=== PATIENT | male | born 1995 | race Caucasian/White ===

== ENCOUNTER 2024-10-27 14:53 | Emergency (ER) | payer MEDICARE, MEDICAID, SELFPAY ==
[2024-10-27 14:55] VITALS: BP 121/71; PULSE 102; RESP 16; TEMP 36.7; O2SAT 98; BMI 26.5
--- NOTE | 2024-10-27 15:13 | EKG12_ITS ---
Test Reason : SEIZURE Blood Pressure : */* mmHG Vent. Rate : 98 BPM Atrial Rate : 98 BPM P-R Int : 148 ms QRS Dur : 98 ms QT Int : 350 ms P-R-T Axes : 63 84 56 degrees QTcB Int : 446 ms Normal sinus rhythm Normal ECG Confirmed by BEBE CARVALHO, QUINCY ([id number]), news copy editor ROSY QUINTANILLA ([id number]) on 10/30/2024 1:06:01 PM Referred By: Confirmed By: QUINCY SPENCE MD
--- NOTE | 2024-10-27 15:19 | EX.ED.DYSGE1 ---
HPI History of Present Illness Chief Complaint: Seizure Narrative Narrative: Chief complaint and HPI: Breakthrough seizures. 29-year-old male with past medical history of autism and seizures presents for evaluation of breakthrough seizure. History taken by mother as well as patient. 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 He did fall to the ground. The first 1 was approximately 2 minutes long followed by a second 1 which was approximately 30 seconds. Patient reported some nausea and lightheadedness after the seizure but now only endorses fatigue. He did bite his tongue. Did not lose bowel or bladder incontinence. They called their neurologist Dr. Gregory at [facility] and recommended that the patient go to the emergency department to check lamotrigine levels. Mother states that the patient takes 300 mg of lamotrigine in the morning with 50 mg of Vimpat. He then takes another 400 mg of lamotrigine in the evening with 50 mg of Vimpat. Patient denies any fever, chills, shortness of breath, chest pain abdominal pain, nausea, vomiting, dysuria. Review of systems: See HPI Medications: As listed on the chart Allergies: As listed on the chart PFSH: Per chart Vital signs: As listed on the chart. Reviewed. Physical exam: Gen: A&O x3, NAD Head: Normocephalic, atraumatic Eyes: No sclera icterus, conjunctiva clear, PERRL, EOMI ENT: TMs clear BL, moist mucous membranes, small bite ashlie to the right side of the tongue, no swelling/lacerations/blood in the mouth or the nares, No nasal septal hematoma, no facial tenderness Neck: Trachea midline, No JVD, Nontender CV: RRR, no murmurs, no chest wall TTP Resp: Lungs CTA BL, no w/r/c GI: Abd soft, non-distended, non-tender, no r/r/g Musc: Full ROM, no deformity, no spinal TTP, no gilda step-offs, strength +5/5 Skin: Warm, dry, intact Neuro: Alert, oriented, grossly intact, sensation intact, GCS 15 Psych: Cooperative, appropriate mood and affect [facility] Medical History (Updated 10/27/24 @ 15:05 by Jo Pringle) History of right shoulder fracture Autism Seizures Home Medications ?Medication ?Instructions ?Recorded ?Last Taken ?Type lacosamide 50 mg tablet 50 mg PO Q12.TCU 10/27/24 Unknown History lamotrigine 100 mg tablet 100 mg PO DAILY 10/27/24 Unknown History lamotrigine 200 mg tablet 600 mg PO DAILY 10/27/24 Unknown History Allergy/AdvReac Type Severity Reaction Status Date / Time grapefruit Allergy Other Verified 10/27/24 15:09 peanut (peanuts) AdvReac Intermediate Rash Verified 10/27/24 15:09 red dye AdvReac Intermediate Rash Verified 10/27/24 15:09 Surgical History (Updated 10/27/24 @ 15:05 by Jo Pringle) Hx of eye surgery Social History Smoking Status: Never smoker EXAM Physical Exam Const Vital Signs: 10/27/24 14:55 10/27/24 15:54 10/27/24 16:00 Temperature 98.0 F Temperature Source Oral Pulse Rate 102 H 87 84 Respiratory Rate 16 18 17 Blood Pressure 121/71 H 114/65 120/78 Blood Pressure Mean 87 81 92 Pulse Ox 98 96 99 Oxygen Delivery Method Room Air Room Air Room Air 10/27/24 17:00 10/27/24 17:58 10/27/24 18:14 Temperature 98.0 F Temperature Source Pulse Rate 89 81 81 Respiratory Rate 21 H 20 H 20 H Blood Pressure 128/74 H 130/72 H 130/72 H Blood Pressure Mean 92 91 91 Pulse Ox 99 98 98 Oxygen Delivery Method Room Air Room Air MDM MDM MDM Narrative Medical decision making narrative: 29-year-old male with past medical history of autism and seizures presents for evaluation of breakthrough seizure. History taken by mother as well as patient. 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 He did fall to the ground. The first 1 was approximately 2 minutes long followed by a second 1 which was approximately 30 seconds. They called their neurologist Dr. Gregory at [facility] and recommended that the patient go to the emergency department to check lamotrigine levels. Patient does state that he accidentally missed his morning medication on Wednesday however took his evening. Differential diagnosis includes but is not limited to breakthrough seizure, subtherapeutic medication levels, electrolyte abnormality, UTI, dehydration, intoxication, substance abuse, traumatic injury. Given patient fell from a standing position we will obtain CT head and neck. Mother states that patient has a history of fractures from falls due to his seizures. NS bolus ordered. Seizure precautions placed. Did obtain a Lamictal level however will be multiple days before this results. Seizure workup ordered. CT head and neck without any acute traumatic injury. CBC without leukocytosis or anemia. CMP relatively unremarkable. No significant electrolyte abnormality, AYDEE, transaminitis magnesium mildly elevated at 2.3. Alcohol level unremarkable. Lactic acid is 5. This coincides with patient having a seizure. Low suspicion for any infectious etiology. UA negative for UTI. Urine drug screen negative. At this point in time, no clear etiology for patient's breakthrough seizure. Will contact his neurologist to make sure he does not need any changes in his medication. I spoke with the [facility] neurology resident and he spoke with their attending. Plan is to increase the Vimpat to 100 mg twice daily. Klonopin 1 mg twice daily x 2 days. Patient and his mother were updated of the medical changes. Prescription sent. No driving or operate heavy machinery until cleared by neurologist. They confirmed understand the plan. Patient stable for discharge home. EKG: Interpreted by me/EM physician: EKG shows normal sinus rhythm without any acute ischemic changes. Heart rate 98 Diagnostic: Interpreted by me/EM physician: Chest x-ray without pneumonia, effusion, cardiomegaly, pneumothorax. Radiology in agreement. Per the report there are biapical patchy ground glass opacity seen on the cervical spine CT but not appreciated on plain radiographs. Patient not endorsing any URI symptoms or cough. Low suspicion for infection. Impression: 1. Breakthrough seizure 2. History of seizures Lab Data Labs: Laboratory Results - last 24 hr 10/27/24 10/27/24 10/27/24 15:02 15:25 16:40 WBC 10.8 RBC 4.42 L Hgb 13.8 Hct 41.3 MCV 93.4 MCH 31.2 MCHC 33.4 RDW Std Deviation 45.0 H RDW Coeff of Christin 13.6 Plt Count 279 MPV 9.2 Immature Gran % (Auto) 0.800 Neut % (Auto) 67.2 Lymph % (Auto) 21.7 Harlan % (Auto) 7.5 Eos % (Auto) 2.5 Baso % (Auto) 0.3 Absolute Neuts (auto) 7.3 Absolute Lymphs (auto) 2.35 Nucleated RBC % 0 Sodium 136 Potassium 4.5 Chloride 99 Carbon Dioxide 17.9 L Anion Gap 18 H BUN 9 Creatinine 1.18 Estim Creat Clear Calc 114.43 Est GFR (MDRD) Non-Af 86 BUN/Creatinine Ratio 7.9 L Glucose 98 Lactic Acid 5.0 H* Calcium 9.2 Magnesium 2.3 H Total Bilirubin 0.39 AST 36 ALT 23 Alkaline Phosphatase 70 Total Protein 7.0 Albumin 4.3 Globulin 2.6 Albumin/Globulin Ratio 1.7 Urine Color Straw Urine Clarity Sl. Cloudy Urine pH 5.0 Ur Specific [place] 1.025 Urine Protein 30 H Urine Glucose (UA) Normal Urine Ketones Negative Urine Occult Blood 25 H Urine Nitrite Negative Urine Bilirubin Negative Urine Urobilinogen Normal Ur Leukocyte Esterase Negative Urine RBC 5-10 SEEN Urine WBC 0-5 SEEN Ur Squamous Epith Cells 0-5 SEEN Urine Bacteria 0 SEEN Urine Mucus 0 SEEN Urine Opiates Screen NEGATIVE U Buprenorphine Qual NEGATIVE Ur Oxycodone Screen NEGATIVE Urine Methadone Screen NEGATIVE Urine Fentanyl Screen NEGATIVE Ur Barbiturates Screen NEGATIVE Ur Phencyclidine Scrn NEGATIVE Ur Amphetamines Screen NEGATIVE U Benzodiazepines Scrn NEGATIVE Urine Cocaine Screen NEGATIVE U Cannabinoids Screen NEGATIVE Ethyl Alcohol < 10.1 Radiography Diagnostic Testing: Clinical Impression(s) from Imaging Studies Brain CT 10/27/24 15:40 IMPRESSION: 1. No acute intracranial abnormality. 2. No acute cervical spine fracture or malalignment. 3. Patchy ground-glass opacities in the imaged lung apices, may be infectious/inflammatory or related to pulmonary edema in the appropriate clinical setting. Reading Location: [facility] Cervical Spine CT 10/27/24 15:40 IMPRESSION: 1. No acute intracranial abnormality. 2. No acute cervical spine fracture or malalignment. 3. Patchy ground-glass opacities in the imaged lung apices, may be infectious/inflammatory or related to pulmonary edema in the appropriate clinical setting. Reading Location: [facility] Chest X-Ray 10/27/24 15:45 IMPRESSION: No definite acute cardiopulmonary disease. There are biapical patchy ground-glass opacities seen on the concomitant cervical spine CT, not appreciated on these plain radiographs. Reading Location: [facility] Discharge Plan Triage Chief Complaint: Seizure ED Provider: Cristian Landin Dx/Rx/DC Orders Prescriptions: No Action lacosamide 50 mg tablet 50 mg PO Q12.TCU lamotrigine 200 mg tablet 600 mg PO DAILY lamotrigine 100 mg tablet 100 mg PO DAILY Primary Care Provider: Care Physician,No Primary Referrals: Town Doctor,Out of [Non-Staff] - Print Language: Slovenian
--- NOTE | 2024-10-27 15:40 | CT_ITS ---
EXAM: CT BRAIN/HEAD WITHOUT CONTRAST; CT SPINE CERVICAL WITHOUT CONTRAST CLINICAL HISTORY: FALL COMPARISON: None. TECHNIQUE: Noncontrast CT images of the head and cervical spine with multiplanar reconstructions. Dose reduction techniques were used including intermediate exposure control (AEC),iterative reconstruction technique, and/or mA and/or KV dose adjustments based on patient's size. FINDINGS: HEAD: No acute intracranial hemorrhage, extra-axial collection, mass effect or evidence of acute infarct. Ventricles and subarachnoid spaces are normal in size. Orbital contents are unremarkable. Intact skull base and calvarium. Well-aerated paranasal sinuses and bilateral mastoid air cells. Left-sided cecilia bullosa with associated rightward nasal septal deviation and spurring. CERVICAL SPINE: No acute fracture or subluxation. Alignment is anatomic. No significant degenerative changes are present. No prevertebral soft tissue swelling. Patchy ground-glass opacities in the imaged bilateral lung apices may be infectious/inflammatory, or possibly related to pulmonary edema. CT/Brain/Head without Contrast IMPRESSION: 1. No acute intracranial abnormality. 2. No acute cervical spine fracture or malalignment. 3. Patchy ground-glass opacities in the imaged lung apices, may be infectious/i nflammatory or related to pulmonary edema in the appropriate clinical setting. Reading Location: [id number]
--- NOTE | 2024-10-27 15:40 | CT_ITS ---
EXAM: CT BRAIN/HEAD WITHOUT CONTRAST; CT SPINE CERVICAL WITHOUT CONTRAST CLINICAL HISTORY: FALL COMPARISON: None. TECHNIQUE: Noncontrast CT images of the head and cervical spine with multiplanar reconstructions. Dose reduction techniques were used including intermediate exposure control (AEC),iterative reconstruction technique, and/or mA and/or KV dose adjustments based on patient's size. FINDINGS: HEAD: No acute intracranial hemorrhage, extra-axial collection, mass effect or evidence of acute infarct. Ventricles and subarachnoid spaces are normal in size. Orbital contents are unremarkable. Intact skull base and calvarium. Well-aerated paranasal sinuses and bilateral mastoid air cells. Left-sided cecilia bullosa with associated rightward nasal septal deviation and spurring. CERVICAL SPINE: No acute fracture or subluxation. Alignment is anatomic. No significant degenerative changes are present. No prevertebral soft tissue swelling. Patchy ground-glass opacities in the imaged bilateral lung apices may be infectious/inflammatory, or possibly related to pulmonary edema. CT/Spine Cervical without Contras IMPRESSION: 1. No acute intracranial abnormality. 2. No acute cervical spine fracture or malalignment. 3. Patchy ground-glass opacities in the imaged lung apices, may be infectious/i nflammatory or related to pulmonary edema in the appropriate clinical setting. Reading Location: [id number]
[2024-10-27 15:44] LABS: Hematocrit 41.3 % (40-54); Hemoglobin 13.8 g/dL (13.0-16.5); Immature Granulocytes Count 0.090 X10^3/uL (0.0-0.0); Mean Corp Hgb Conc 33.4 g/dL (32-36); Mean Corpuscular Volume 93.4 fL (80-94); Mean Platelet Vol. 9.2 fl (6.2-12.0); NRBC Flagged by Analyzer 0 % (0-5); Platelet Count 279 K/mm3 (150-450); RBC Distribution Width CV 13.6 % (11.6-14.6); RBC Distribution Width SD 45.0 fl (35.1-43.9); Red Blood Count 4.42 M/mm3 (4.6-6.2); White Blood Count 10.8 K/mm3 (4.4-11.0)
--- NOTE | 2024-10-27 15:45 | RAD_ITS ---
PROCEDURE: CHEST PA AND LATERAL 10/27/2024 REASON FOR EXAM: SEIZURE TECHNIQUE: CHEST PA AND LATERAL COMPARISON: No prior chest exams. Cervical spine CT from same day. FINDINGS: Lungs/Pleura: No focal consolidation appreciated. Patchy biapical ground-glass airspace opacities seen on the CT cervical spine exam not well appreciated on these plain radiographs. No pneumothorax or pleural effusion. No significant vascular congestion. Heart/Mediastinum: Within normal limits. Bones/Soft tissues: No significant abnormality. RAD/Chest PA and Lateral IMPRESSION: No definite acute cardiopulmonary disease. There are biapical patchy ground-gl ass opacities seen on the concomitant cervical spine CT, not appreciated on these plain radiographs. Reading Location: [id number]
[2024-10-27 15:51] LABS: Magnesium 2.3 mg/dL (1.5-2.2)
[2024-10-27 15:54] VITALS: BP 114/65; PULSE 87; RESP 18; O2SAT 96
[2024-10-27 15:54] LABS: AST(SGOT) 36 U/L (<=37); Alanine Aminotransfer ALT/SGPT 23 U/L (<=46); Albumin, Serum 4.3 g/dL (3.5-5.0); Alkaline Phosphatase 70 U/L (40-129); Anion Gap 18 (5-15); BUN 9 mg/dL (4-19); BUN/Creat Ratio 7.9 RATIO (10-20); Calcium,Total 9.2 mg/dL (7.6-11.0); Carbon Dioxide 17.9 mmol/L (21.0-32.0); Chloride 99 mmol/L (98-108); Estimated Creatinine Clearance 114.43 ml/min (50-250); Globulin 2.6 g/dL (2.2-4.2); Glucose 98 mg/dL (70-99); Potassium 4.5 mmol/L (3.3-5.1)
[2024-10-27 16:00] VITALS: BP 120/78; PULSE 84; RESP 17; O2SAT 99
[2024-10-27] MEDS: 0.9% Normal Saline (1000mL) 1,000 ML 1000 ML IV (16:05)
[2024-10-27 16:13] LABS: Alcohol, Blood (Medical)-Serum < 10.1 mg/dL (<=10.0)
[2024-10-27 16:45] LABS: Mucous, Urine 0 SEEN /hpf (<or=2+)
[2024-10-27 17:00] VITALS: BP 128/74; PULSE 89; RESP 21; O2SAT 99
[2024-10-27 17:10] LABS: Color, Urine Straw (Yellow); Glucose, Dipstick Normal (Normal); Ketone-Dipstick Negative (Negative); Leukocyte Esterase-Dipstick Negative /ul (Negative); Nitrite-Dipstick Negative (Negative); Occult Blood-Urine 25 /ul (Negative); Protein-Dipstick 30 mg/dl (Negative); Specific Gravity, Urine 1.025 (1.002-1.030); Urine Bilirubin Dipstick Negative (Negative)
[2024-10-27 17:27] LABS: Red Blood Cells-Urine 5-10 SEEN /hpf (0-5); Squamous Epithelial Cells - UA 0-5 SEEN /hpf (0-5)
[2024-10-27 17:36] LABS: Barbiturate Urine NEGATIVE (< 200 ng/mL); Benzodiazepine Urine NEGATIVE (< 200 ng/mL); PCP Urine NEGATIVE (< 25 ng/mL); THC Urine NEGATIVE (< 50 ng/mL)
[2024-10-27 17:58] VITALS: BP 130/72; PULSE 81; RESP 20; O2SAT 98
[2024-10-27 18:14] VITALS: BP 130/72; PULSE 81; RESP 20; TEMP 36.7; O2SAT 98
[2024-10-27 20:17] LABS: Reflex Lactate? Y
== END 2024-10-27 18:40 | disposition home or self-care (01) ==
PROVIDERS: Emergency Provider Surgery; Visit Provider Surgery
DX: R56.9 Unspecified convulsions (principal); F84.0 Autistic disorder
CPT/HCPCS: 70450; 71046; 72125; 80053; 80307; 81001; 82077; 82542; 83605; 83735; 85025; 93005; 96360; 99285; A4216